=== PATIENT | female | born 1960 | race Caucasian/White ===

== ENCOUNTER → 2017-07-15 08:42 | Outpatient (CLI) | payer OTHER, SELFPAY ==
--- NOTE | 2017-07-15 08:53 | RAD_ITS ---
STUDY: X-RAY - PELVIS AND LEFT HIP REASON FOR EXAM: Female, 57 years old. Chronic left hip pain. TECHNIQUE: Radiological exam, hip, unilateral, with pelvis when performed; 2 or 3 views. COMPARISON: None. FINDINGS: There is a non-specific bowel gas pattern. There are multiple calcified phleboliths. There are healed changes of prior bilateral posterior L4-5 fusion with metal hardware. There is narrowing with cortical sclerosis and osteophyte formation of the bilateral sacroiliac joints, consistent with degenerative osteoarthritic changes. Small cortical enthesophytes noted from the lateral iliac wings. Normal visualized sacrum. Normal bilateral superior and inferior pubic rami. There are degenerative changes of the pubic symphysis with articular narrowing and sclerosis. Normal bilateral ischial tuberosities. Normal visualized femoral head. Normal acetabulum. Normal hip joint. There is no demonstrated osseous destructive lesion or fracture. RAD/Hip 2-3 Views with Pelvis IMPRESSION: 1. Normal x-ray examination of the left hip. 2. 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 3. Healed prior bilateral posterior L4-5 fusion with metal hardware. Electronically Signed: Berny Moore MD at 9:25 EDT , Service support ,
== END ==
LOC: HPRAD 08:50
PROVIDERS: Family Provider Family Medicine; PCP Family Medicine; Visit Provider Nurse Practitioner Family
DX: M25.552 Pain in left hip (principal)
CPT/HCPCS: 73502

== ENCOUNTER 2021-01-09 09:48 | Day surgery (SDC) | payer OTHER, SELFPAY ==
--- NOTE | 2020-12-30 16:00 | HP.PCM_ITS ---
History and Physical Date of Admission: 01/09/21 Chief Complaint: Pain in lower back,right buttock,right leg History of Present Illness: This is a 69 Y/O male who was seen and evaluated at our office today as a new consult. Pt was referred to this office by Dr Cheek. Pt's chief complaint is low back pain with pain radiating into his right hip and down his right leg into the front of his right calf. Pt states he will at times get cramping in his foot depending upon the exercise. Pt states he has had this pain for years, States years ago he was running in a field and his foot went into hole and his back pain has been ever since. Pt states the pain can be sharp at times but he knows it is there. States when he walks he feels it with every step. States stretches and exercises help. Pt has had PT with relief and continues the exercises and pt has had a MRI. Pt feels the therapy helps his pain. Pt is here for an injection to see if that would help. Pt has had an injection in the past with relief. Pain: lower back,right buttock,right leg Quality: constant,varies in intensity Region: Pain in the lower back into the right buttock and has pain down the right leg. 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 Review of Systems: ear noises,frequent urination,sexual difficulty,lower back injury, dripping after urination,prostate problems. Patient denies any recent fever, chills, headache, change in weight without trying, vision or hearing problems. No cp, sob, potts, pnd, orthopnea, or peripheral edema.They note no lumps or swollen glands, no new rashes, changing moles, or change in bowel or bladder function.Mood has been frustrated. Past Medical History: h/o coronary artery disease h/o hypertension h/o thrombosis h/o Arthritis h/o glaucoma h/o peripheral vascular disease s/p left rotator cuff repair 2014 s/p heart stent 2017 s/p left leg vein stripping Family History: ======== Structured Family History ======== Father: Heart disease Mother: Stroke, Hypertension Social History: [Tobacco: Former smoker (0 pk yrs / 0 yrs quit) Start Date: 12/06/2020 End Date: 12/06/2020 Pipe Smoker: No Cigar Smoker: No Chewing Tobacco User: No Electronic Cigarette User: No] Living situation: Occupation: Retired Tobacco: Former (quit 1974) Cigar-rarely EtOH: Occasional Rec. drugs: Denies Allergies: Tetracycline Medications: 1) alfuzosin 10 mg oral tablet, extended release, Take 1 tablet by mouth once daily 2) clopidogrel 75 mg oral tablet, Take 1 tablet by mouth once daily 3) ezetimibe 10 mg oral tablet, Take 1 tablet by mouth once daily 4) Glucosamine Chond Complex/MSM Oral Tablet CAPLET, Take 1 tablet by mouth once daily 5) lisinopril 20 mg oral tablet, Take 1 tablet by mouth once daily 6) meclizine 25 mg oral tablet, Take 1 tablet by mouth once daily 7) meloxicam 7.5 mg oral tablet, Take 1 tablet by mouth 2 times a Day 8) nitroglycerin 0.4 mg sublingual tablet, as directed prn 9) pantoprazole 40 mg oral delayed release tablet, Take 1 tablet by mouth once daily 10) Saw Randolph oral capsule, Take 1 tablet by mouth once daily 11) sildenafil 100 mg oral tablet, Take 1 tablet by mouth prn 12) verapamil 120 mg oral tablet, Take 1 tablet by mouth once daily 13) Vitamin B Complex oral capsule, Take 1 tablet by mouth once daily 14) Vitamin B12 1000 mcg oral tablet, Take 1 tablet by mouth once daily 15) Vitamin D3 2000 intl units (50 mcg) oral capsule, Take 1 tablet by mouth once daily 16) Xarelto 10 mg oral tablet, Take 1 tablet by mouth once daily Physical Examination: Wt: 185.2 lb Ht/Ln: 70 in BMI: 26.6 BP: 139/77 Pulse: 86 RR: 16 Temp: 97.1F Pain: 7 Well nourished and well developed in no acute distress. Alert and oriented to person, place and time. Affect is normal and appropriate. Mucosa pink and moist. Respirations even and unlabored. Neck is supple without significant lymphadenopathy or thyromegaly. Abdomen soft & non-tender. No HSM or masses appreciated. Extremities show no cyanosis, clubbing, or edema. Musculoskeletal exam: pt is ambulating to and from the examination room with an antalgic gait without any assistance of any devices, pt was able to ambulate on his heels and tip toes without difficulty, ROM of the lumbar spine is limited to 40 degrees flexion and 25 degrees extension, lateral rotation with pain. On inspection of the lower back there is no surgical scar. Alignment of the spine appears normal. On superficial and deep palpation there is tenderness at the right paraspinal muscle without muscle spasms, there is no step off on the spinous process. There is tenderness and positive facet loading on the right, negative SI joint tenderness , SLR test is positive at 40 degrees on the right and positive 40 degrees on the left, YESICA test is negative on the right and positive on the left, motor function is 5/5 on the right lowe extremity muscles and 5/5 on the left lower extremity muscles, sensory exam intact to light touch on the right and the left, reflexes are symmetrical bilateral and 2+ on the right knee jerk and Achilles and 2+ on the left knee jerk and Achilles, pulses and capillary refill are intact. 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 OARRS was reviewed today. UDS was performed today and will be reviewed on the next encounter to monitor pt medications compliance. SOAPP score is 4 MRI of the lumbar spine was reviewed with the pt today and they appear to understand. There are no signs of diversion or addiction with the pt, there is also no signs of abuse or misuse, continues to do well with their medications without any side effects, we will continue monitoring the pt closely. Pt has tried multiple modalities with no success, we will schedule the pt for a therapeutic/diagnostic right lumbar transforaminal epidural steroid injection L4-S1 under fluoroscopy We have discussed the risks, benefits as well as alternatives of the procedure and the patient appears to understand and would like to proceed with the above plan. Reviewed with the pt today our opioid agreement and they appear to understand. PEG was reviewed today. Life style modifications were also discussed today and the pt appears to understand. Risks and benefits of the above meds were discussed with the pt and they appear to understand. The common side effects of the medications were discussed and all of their questions and concerns were answered and they appear to understand Discussed natural and expected course of this diagnosis and need to alert me if symptoms do not follow expected course, or if any worse. Pt is to continue with his PT and HEP. The above plan was discussed today with the pt in detail and they appear to understand and agrees to continue with the plan.
[2021-01-09 10:27] VITALS: BP 128/70; PULSE 58; RESP 16; TEMP 36.1; O2SAT 100; BMI 27.1
[2021-01-09] MEDS: Lactated Ringers 1,000 ML 100 ML IV (10:31)
--- NOTE | 2021-01-09 11:20 | RAD_ITS ---
STUDY: X-RAY - LUMBAR SPINE REASON FOR EXAM: Female, 60 years old. LUMBAR SYMPATHETIC PLEXUS NERVE BLOCK, RIGHT TECHNIQUE: 1 view(s) of the lumbar spine were obtained. COMPARISON: None FINDINGS: Fluoroscopic services provided for right sympathetic plexus nerve block. RAD/Spine 1 View Any Level IMPRESSION: Fluoroscopic services provided for right sympathetic plexus nerve block. Electronically Signed: Paul Escalante MD at 14:52 EDT , Service support ,
--- NOTE | 2021-01-09 11:31 | OP.PCM_ITS ---
Report of Operation Date of Procedure: 01/09/21 Description of Surgical Findings:: POSTOPERATIVE DIAGNOSIS: PREOPERATIVE DIAGNOSES: 1. Complex regional pain syndrome of the right lower extremity. 2. Reflex sympathetic dystrophy on the right lower extremity. POSTOPERATIVE DIAGNOSES: 1. Complex regional pain syndrome of the right lower extremity. 2. Reflex sympathetic dystrophy on the right lower extremity. PROCEDURE PERFORMED: Right-sided lumbar sympathetic plexus steroid injection under fluoroscopy guidance. ANESTHESIA: MAC. BLOOD LOSS: Minimal. COMPLICATIONS: None. DESCRIPTION OF PROCEDURE: History and physical of today was reviewed. Risks and benefits of the procedure were explained. The patient understood and agreed to proceed. Informed consent was obtained. IV inserted per routine protocol. The patient was taken to the operating room and placed in the prone position with a pillow positioned beneath the abdomen. The right side of his lower back was prepped and draped in a sterile fashion using iodine x3. Under fluoroscopy guidance on AP view, the L2-3 intervertebral level was visualized. The skin and subcutaneous tissue was anesthetized with approximately 5 mL of 1% lidocaine of approximately 6 cm lateral to the midline to the right side. Under direct visualization with fluoroscopy, at approximately 45-degree angle, using a 22- gauge 5-inch spinal needle, the needle was advanced via the skin. The tip of the needle was maneuvered and directed towards the transverse process of the L3 level superior to the transverse process. The tip of the needle was then maneuvered under direct visualization on fluoroscopy at approximately 45-degree angle and directed further outward and superior to the L3 transverse process. The needle was then further advanced under direct visualization with fluoroscopy on a lateral view to approximately 2-3 mm anterior to the body of L3. Once the tip of the needle was at the vicinity of the sympathetic plexus, after negative aspiration for blood or CSF, a total of 2 mL of contrast was injected to confirm correct placement of the needle as well as cephalocaudal spread from L2 to approximately L4 level to the right paramedian of the vertebral body. After repeated confirmation on AP as well as lateral view and repeated negative aspiration, a total of 10 mL of preservative-free 0.25% Marcaine with a trace of Depo-Medrol was injected easily. The needle was then removed intact. The patient experienced no sign or symptoms of intrathecal or intravascular injection. The patient experienced no paresthesia. The procedure was completed without any apparent difficulty or any complications. The patient appeared to tolerate it well. Assessment and plan: This is a 60-year-old female with complex regional pain syndrome of the right lower extremity reflex sympathetic dystrophy of the right lower extremity status post right-sided lumbar sympathetic plexus steroid injection under fluoroscopic guidance,, the patient will continue her current medications, patient will follow approximately 2 weeks for reevaluation.
[2021-01-09] MEDS: MethylPREDNISolone Acetate 80 MG/ML Vial (11:50)
[2021-01-09] MEDS: Bupivacaine 0.25% 30 ML Vial (11:51)
[2021-01-09] MEDS: Lidocaine 1% (5 ml sdv) 5 ML Vial (11:51)
[2021-01-09 12:00] VITALS: BP 103/66; BP 128/70; PULSE 64; RESP 18; TEMP 36.6; O2SAT 100
[2021-01-09 12:05] VITALS: BP 111/66; BP 128/70; PULSE 60; RESP 18; O2SAT 97
[2021-01-09 12:10] VITALS: BP 116/66; BP 128/70; PULSE 54; RESP 18; O2SAT 100
[2021-01-09 12:13] VITALS: BP 121/67; BP 128/70; PULSE 54; RESP 14; TEMP 36.3; O2SAT 100
[2021-01-09 12:30] VITALS: BP 128/70
== END 2021-01-09 12:36 | disposition home or self-care (01) ==
LOC: SDC 09:52 → AC 09:54
PROVIDERS: PCP Family Medicine; Referring Provider Anesthesiology Pain Medicine; Visit Provider Anesthesiology Pain Medicine
PROC: 3E0T3BZ Introduction of Anesthetic Agent into Peripheral Nerves and Plexi, Percutaneous Approach (ICD-10-PCS; CPT 64520; principal; 2021-01-09 11:15)
DX: G90.521 Complex regional pain syndrome I of right lower limb (principal); M51.17 Intervertebral disc disorders with radiculopathy, lumbosacral region; M47.27 Other spondylosis with radiculopathy, lumbosacral region; M48.07 Spinal stenosis, lumbosacral region; I25.10 Atherosclerotic heart disease of native coronary artery without angina pectoris; I10 Essential (primary) hypertension; M19.90 Unspecified osteoarthritis, unspecified site; I73.9 Peripheral vascular disease, unspecified; Z87.891 Personal history of nicotine dependence; Z79.1 Long term (current) use of non-steroidal anti-inflammatories (NSAID); Z79.02 Long term (current) use of antithrombotics/antiplatelets; Z79.899 Other long term (current) drug therapy
CPT/HCPCS: 01992; 64520; 64483; 72020; J7120

== ENCOUNTER 2021-12-25 06:43 | Day surgery (SDC) | payer OTHER, SELFPAY ==
[2021-12-25] VITALS (7 sets, daily range): BP systolic 109–140; BP diastolic 67–70; PULSE 64–78; RESP 16–18; TEMP 36.2–36.6; O2SAT 97–100; BMI 26.9
--- NOTE | 2021-12-25 07:00 | RAD_ITS ---
PROCEDURE: Right sympathetic nerve block. DATE OF EXAMINATION: 12/25/2021 INDICATION: Female, 61 years old. Back pain. FLUOROSCOPY TIME (if supplied): (13 seconds) minutes/seconds. 6 images were submitted. RAD/Spine 1 View Any Level IMPRESSION: Fluoroscopic services provided for right sympathetic nerve block. Electronically Signed: Paul Escalante MD at 9:31 EDT ,
[2021-12-25] MEDS: Lactated Ringers 1,000 ML 15 ML IV (07:15)
[2021-12-25] MEDS: Lidocaine 1% (5 ml sdv) 5 ML Vial (08:21)
[2021-12-25] MEDS: MethylPREDNISolone Acetate 80 MG/ML Vial (08:23)
[2021-12-25] MEDS: Bupivacaine 0.25% 30 ML Vial OPERA.SITE (08:23)
--- NOTE | 2021-12-25 10:16 | OP.PCM_ITS ---
Report of Operation Date of Procedure: 12/25/21 Description of Surgical Findings:: PREOPERATIVE DIAGNOSES: 1. Complex regional pain syndrome of the right lower extremity. 2. Reflex sympathetic dystrophy on the right lower extremity. POSTOPERATIVE DIAGNOSES: 1. Complex regional pain syndrome of the right lower extremity. 2. Reflex sympathetic dystrophy on the right lower extremity. PROCEDURE PERFORMED: Right-sided lumbar sympathetic plexus steroid injection under fluoroscopy guidance. ANESTHESIA: MAC. BLOOD LOSS: Minimal. COMPLICATIONS: None. DESCRIPTION OF PROCEDURE: History and physical of today was reviewed. Risks and benefits of the procedure were explained. The patient understood and agreed to proceed. Informed consent was obtained. IV inserted per routine protocol. The patient was taken to the operating room and placed in the prone position with a pillow positioned beneath the abdomen. The right side of his lower back was prepped and draped in a sterile fashion using iodine x3. Under fluoroscopy guidance on AP view, the L2-3 intervertebral level was visualized. The skin and subcutaneous tissue was anesthetized with approximately 5 mL of 1% lidocaine of approximately 6 cm ___ lateral to the midline to the right side. Under direct visualization with fluoroscopy, at approximately 45-degree angle, using a 22- gauge 5-inch spinal needle, the needle was advanced via the skin. The tip of the needle was maneuvered and directed towards the transverse process of the L3 level superior to the transverse process. The tip of the needle was then maneuvered under direct visualization on fluoroscopy at approximately 45-degree angle and directed further outward and superior to the L3 transverse process. The needle was then further advanced under direct visualization with fluoroscopy on a lateral view to approximately 2-3 mm anterior to the body of L3. Once the tip of the needle was at the vicinity of the sympathetic plexus, after negative aspiration for blood or CSF, a total of 2 mL of contrast was injected to confirm correct placement of the needle as well as cephalocaudal spread from L2 to approximately L4 level to the right paramedian of the vertebral body. After repeated confirmation on AP as well as lateral view and repeated negative aspiration, a total of 10 mL of preservative-free 0.25% Marcaine with a trace of Depo-Medrol was injected easily. The needle was then removed intact. The patient experienced no sign or symptoms of intrathecal or intravascular injection. The patient experienced no paresthesia. The procedure was completed without any apparent difficulty or any complications. The patient appeared to tolerate it well. Assessment and plan: This is a 62-year-old female with complex regional pain syndrome of the right l ower extremity reflex sympathetic dystrophy of the right lower extremity status post right-sided lumbar sympathetic plexus steroid injection under fluoroscopic guidance, patient will continue her current medications, patient will follow approximately 2 weeks for reevaluation.
== END 2021-12-25 09:18 | disposition home or self-care (01) ==
LOC: SDC 06:46 → AC 06:48
PROVIDERS: Referring Provider Anesthesiology Pain Medicine; Visit Provider Anesthesiology Pain Medicine
PROC: 3E0S3BZ Introduction of Anesthetic Agent into Epidural Space, Percutaneous Approach (ICD-10-PCS; CPT 62322; principal; 2021-12-25 07:55)
DX: G90.521 Complex regional pain syndrome I of right lower limb (principal); J44.9 Chronic obstructive pulmonary disease, unspecified; Z87.891 Personal history of nicotine dependence; Z79.899 Other long term (current) drug therapy; Z79.51 Long term (current) use of inhaled steroids; M70.62 Trochanteric bursitis, left hip; M79.2 Neuralgia and neuritis, unspecified; Z79.891 Long term (current) use of opiate analgesic; M47.812 Spondylosis without myelopathy or radiculopathy, cervical region; M96.1 Postlaminectomy syndrome, not elsewhere classified; M48.9 Spondylopathy, unspecified; K21.9 Gastro-esophageal reflux disease without esophagitis
CPT/HCPCS: 64520; 01992; 64483; 72020; J7120

== ENCOUNTER 2023-01-14 08:24 | Day surgery (SDC) | payer OTHER, SELFPAY ==
[2023-01-14] MEDS: Lactated Ringers 1,000 ML 15 ML IV (08:50)
[2023-01-14 08:51] VITALS: BP 142/69; PULSE 60; RESP 16; TEMP 36.1; O2SAT 100; BMI 26.8
--- NOTE | 2023-01-14 09:08 | RAD_ITS ---
STUDY: LUMBAR SYMPATHETIC NERVE STEROID BLOCK ON THE RIGHT. REASON FOR EXAM: Female, 62 years old. LUMBAR SYMPATHETIC NERVE STEROID BLOCK, RIGHT, 7 seconds fluoro, 1.85 mg, 4 spots FLUOROSCOPY TIME (if supplied): ( 7 seconds ) minutes/seconds. 1.85 mGy TECHNIQUE: Fluoroscopic services provided for right lumbar sympathetic nerve steroid block. COMPARISON: None. RAD/Spine 1 View Any Level IMPRESSION: Fluoroscopic services provided for right lumbar sympathetic nerve steroid block. Electronically Signed: Paul Escalante MD at 10:06 EST ,
[2023-01-14] MEDS: Lidocaine 1% (5 ml sdv) 5 ML Vial (09:15)
[2023-01-14] MEDS: MethylPREDNISolone Acetate 80 MG/ML Vial (09:15)
[2023-01-14 09:24] VITALS: BP 113/68; BP 142/69; PULSE 56; RESP 16; TEMP 36.4; O2SAT 98
--- NOTE | 2023-01-14 09:25 | OP.PCM_ITS ---
Report of Operation Date of Procedure: 01/14/23 Description of Surgical Findings:: PREOPERATIVE DIAGNOSES: 1. Complex regional pain syndrome of the right lower extremity. 2. Reflex sympathetic dystrophy on the right lower extremity. POSTOPERATIVE DIAGNOSES: 1. Complex regional pain syndrome of the right lower extremity. 2. Reflex sympathetic dystrophy on the right lower extremity. PROCEDURE PERFORMED: Right-sided lumbar sympathetic plexus steroid injection under fluoroscopy guidance. ANESTHESIA: MAC. BLOOD LOSS: Minimal. COMPLICATIONS: None. DESCRIPTION OF PROCEDURE: History and physical of today was reviewed. Risks and benefits of the procedure were explained. The patient understood and agreed to proceed. Informed consent was obtained. IV inserted per routine protocol. The patient was taken to the operating room and placed in the prone position with a pillow positioned beneath the abdomen. The right side of his lower back was prepped and draped in a sterile fashion using iodine x3. Under fluoroscopy guidance on AP view, the L2-3 intervertebral level was visualized. The skin and subcutaneous tissue was anesthetized with approximately 5 mL of 1% lidocaine of approximately 6 cm lateral to the midline to the right side. Under direct visualization with fluoroscopy, at approximately 45-degree angle, using a 22- gauge 5-inch spinal needle, the needle was advanced via the skin. The tip of the needle was maneuvered and directed towards the transverse process of the L3 level superior to the transverse process. The tip of the needle was then maneuvered under direct visualization on fluoroscopy at approximately 45-degree angle and directed further outward and superior to the L3 transverse process. The needle was then further advanced under direct visualization with fluoroscopy on a lateral view to approximately 2-3 mm anterior to the body of L3. Once the tip of the needle was at the vicinity of the sympathetic plexus, after negative aspiration for blood or CSF, a total of 2 mL of contrast was injected to confirm correct placement of the needle as well as cephalocaudal spread from L2 to approximately L4 level to the right paramedian of the vertebral body. After repeated confirmation on AP as well as lateral view and repeated negative aspiration, a total of 10 mL of preservative-free 0.25% Marcaine with a trace of Depo-Medrol was injected easily. The needle was then removed intact. The patient experienced no sign or symptoms of intrathecal or intravascular injection. The patient experienced no paresthesia. The procedure was completed without any apparent difficulty or any complications. The patient appeared to tolerate it well. Assessment and plan: This is a 62-year-old female with complex regional pain syndrome of the right lower extremity reflex sympathetic dystrophy of the right lower extremity status post right-sided lumbar sympathetic plexus steroid injection under fluoroscopic guidance, patient will continue her current medications, patient will follow in approximately 2 weeks for reevaluation.
[2023-01-14 09:30] VITALS: BP 114/64; BP 142/69; PULSE 54; RESP 16; O2SAT 99
[2023-01-14 09:35] VITALS: BP 121/63; BP 142/69; PULSE 54; RESP 16; O2SAT 100
[2023-01-14 09:40] VITALS: BP 125/63; BP 142/69; PULSE 62; RESP 16; TEMP 36.4; O2SAT 98
[2023-01-14 10:00] VITALS: BP 142/69
== END 2023-01-14 10:10 | disposition home or self-care (01) ==
LOC: SDC 08:29 → AC 08:29
PROVIDERS: Referring Provider Anesthesiology Pain Medicine; Visit Provider Anesthesiology Pain Medicine
PROC: 3E0T3BZ Introduction of Anesthetic Agent into Peripheral Nerves and Plexi, Percutaneous Approach (ICD-10-PCS; CPT 64520; principal; 2023-01-14 09:35)
DX: G90.521 Complex regional pain syndrome I of right lower limb (principal); M79.604 Pain in right leg; J45.909 Unspecified asthma, uncomplicated; K21.9 Gastro-esophageal reflux disease without esophagitis
CPT/HCPCS: 64520; 64483; 72020; J7120

== ENCOUNTER 2024-01-27 08:19 | Day surgery (SDC) | payer OTHER, SELFPAY ==
[2024-01-27] VITALS (8 sets, daily range): BP systolic 100–123; BP diastolic 51–60; PULSE 53–59; RESP 16–18; TEMP 36.4–36.8; O2SAT 98–100; BMI 23.3
--- NOTE | 2024-01-27 08:30 | RAD_ITS ---
PROCEDURE: Right sympathetic plexus injection. DATE OF EXAMINATION: January 27, 2024. INDICATION: Female, 64 years old. Chronic back pain. FLUOROSCOPY TIME (if supplied): (10 seconds) minutes/seconds. 2.73 mGy. 2 images were submitted. RAD/Lumbar Spine 2 or 3 Views IMPRESSION: Intraoperative imaging provided for right sympathetic plexus injection. Electronically Signed: Paul Escalante MD at 12:54 EST ,
--- NOTE | 2024-01-27 08:40 | PRE.ANES_ITS ---
ASA Classification* ASA Classification ASA Classification: 2 Assessment & Plan Anesthesia* Anesthesia Assessment Anesthesia Assessment: Discussed sedation and/or anesthesia options, risks, benefits, and alternatives with patient/parents/legal guardian/POA. Questions invited. The patient/parents/legal guardian/POA seems to understand and agrees to proceed with anesthesia plan. Reviewed the physical assessment, medical history, allergy history and patient home medications list prior to surgery/procedure/anesthetic and documented any changes. Performed airway and anesthesia risk assessments. 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 When Was Last Pacemaker Check QUESTION #4 FULL TEXT: You/Your Family Experience fever (hyperthermia) with Anesthesia Last Oral Intake Last Oral intake: Last Oral Intake NPO since 23:00 01/27/24 08:33 Meds taken in AM with sips of Yes 01/27/24 08:33 water? 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 Yes 01/22/24 10:30 HX of Motion Sickness Yes 01/22/24 10:30 HX of N/V After Surgery No 01/22/24 10:30 Non-Smoker Yes 01/22/24 10:30 Duration of Surgery greater No 01/22/24 10:30 than 60 minutes Number of Risk Factors 3 01/22/24 10:30 PONV Score Moderate Risk 01/22/24 10:30 Height & Weight Height & Weight: Anesthesia: Height & Weight Height 5 ft 1 in 01/27/24 08:33 Weight: 56 kg 01/27/24 08:33 Body Mass Index (BMI) 23.3 01/27/24 08:33 Respiratory Assessment Respiratory Assessment - [employer] police sergeant: Respiratory Tract Infection Hx - [employer] i police sergeant Hx Respiratory Tract Infection No 01/22/24 10:30 STOP Sleep Apnea STOP Sleep Apnea - [employer] police sergeant: STOP Sleep Apnea - [employer] police sergeant Hx Hypertension No 01/22/24 10:30 Hx Sleep Apnea Yes 01/22/24 10:30 CPAP Yes 01/22/24 10:30 BIPAP No 01/22/24 10:30 Do you snore loudly (louder than talking or can be heard Do you often feel tired/ fatigued/ sleepy during daytime? Has anyone observed you stop breathing during sleep? STOP Results Positive 01/22/24 10:30 QUESTION #5 FULL TEXT : Do you snore loudly (louder than talking or can be heard through closed doors)? 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 Specify any problems Hx of Preganancy in last 3 No 01/22/24 10:30 Months Nurse Filling Out Transfusion DSCHRIBER 01/22/24 10:30 & Questions: Date: 01/22/24 01/22/24 10:30 Time: 10:31 01/22/24 10:30 Patient unable to answer at this time (ie. confused, unrespo /Reproduction History /Reproductive History - [employer] police [employer]: /Reproductive Hx- [employer] police [employer] Hx Now No 01/22/24 10:30 Gestational Age (in weeks): EDC: Hx Hx Para Hx Section SAB No 01/22/24 10:30 [facility] Medical History Post-menopausal Easy bruising Shortness of breath on exertion Pain Loss of hearing Wears glasses Wears dentures Anxiety Arthritis Low iron Restless legs Back pain Migraine headache Gastric reflux Former smoker CPAP (continuous positive airway pressure) dependence Asthma Leg cramps History of cardiac murmur as a child History of stress test Home Medications ?Medication ?Instructions ?Recorded ?Last Taken ?Type albuterol sulfate 90 mcg/actuation 1 inh inhalation Q6H PRN SOB 01/03/21 Unknown History breath activated powder inhaler budesonide-formoterol HFA 80 2 puff inhalation BID 01/03/21 Unknown History mcg-4.5 mcg/actuation aerosol inhaler (Symbicort) cyanocobalamin (vitamin B-12) 25 50 mcg PO DAILY 01/03/21 Unknown History mcg tablet gabapentin 800 mg tablet 800 mg PO 4X/DAY 01/03/21 01/27/24 History pantoprazole 40 mg tablet,delayed 40 mg PO DAILY 01/03/21 01/27/24 History release trazodone 50 mg tablet 50 mg PO QHS 01/03/21 Unknown History Allergy/AdvReac Type Severity Reaction Status Date / Time codeine Allergy Rash Verified 01/27/24 08:32 Surgical History Hx laparoscopic cholecystectomy History of fusion of lumbar spine Hx of fusion of cervical spine Hx of thumb surgery History of partial hysterectomy Hx of tonsillectomy Social History Smoking Status: Former smoker Review of Systems (Anesthesia) ROS Narrative System reviewed and no additional complaints, except as documented.
[2024-01-27] MEDS: MethylPREDNISolone Acetate 80 MG/ML Vial (09:26)
[2024-01-27] MEDS: Bupivacaine 0.25% 30 ML Vial (09:26)
[2024-01-27] MEDS: Lidocaine 1% (5 ml sdv) 5 ML Vial (09:26)
--- NOTE | 2024-01-27 09:34 | OP.PCM_ITS ---
Operative Report (Standard) Operative Information Surgery/Procedure Performed: Right-sided lumbar sympathetic plexus steroid i njection under fluoroscopy guidance. Surgeon: Boston Sharma Date of Procedure: 01/27/24 Procedure Start Time: :34 Procedure Stop Time: 09:35 Pre-Operative Diagnosis: 1.Complex regional pain syndrome of the right lower extremity. 2.Reflex sympathetic dystrophy on the right lower extremity. Post-Operative Diagnosis: 1.Complex regional pain syndrome of the right lower extremity. 2.Reflex sympathetic dystrophy on the right lower extremity. Select all DRAINS/GRAFTS/IMPLANTS that apply: None Type of Anesthesia: Local MAC and MAC Estimated Blood Loss: <1 cc Specimen collected: No Description of surgery: PREOPERATIVE DIAGNOSES: 1.Complex regional pain syndrome of the right lower extremity. 2.Reflex sympathetic dystrophy on the right lower extremity. POSTOPERATIVE DIAGNOSES: 1.Complex regional pain syndrome of the right lower extremity. 2.Reflex sympathetic dystrophy on the right lower extremity. PROCEDURE PERFORMED: Right-sided lumbar sympathetic plexus steroid injection under fluoroscopy guidance. ANESTHESIA: MAC. BLOOD LOSS: Minimal. COMPLICATIONS: None. DESCRIPTION OF PROCEDURE: History and physical of today was reviewed. Risks and benefits of the procedure were explained. The patient understood and agreed to proceed. Informed consent was obtained. IV inserted per routine protocol. The patient was taken to the operating room and placed in the prone position with a pillow positioned beneath the abdomen. The right side of his lower back was prepped and draped in a sterile fashion using iodine x3. Under fluoroscopy guidance on AP view, the L2-3 intervertebral level was visualized. The skin and subcutaneous tissue was anesthetized with approximately 5 mL of 1% lidocaine of approximately 6 cm lateral to the midline to the right side. Under direct visualization with fluoroscopy, at approximately 45-degree angle, using a 22- gauge 5-inch spinal needle, the needle was advanced via the skin. The tip of the needle was maneuvered and directed towards the transverse process of the L3 level superior to the transverse process. The tip of the needle was then maneuvered under direct visualization on fluoroscopy at approximately 45-degree angle and directed further outward and superior to the L3 transverse process. The needle was then further advanced under direct visualization with fluoroscopy on a lateral view to approximately 2-3 mm anterior to the body of L3. Once the tip of the needle was at the vicinity of the sympathetic plexus, after negative aspiration for blood or CSF, a total of 2 mL of contrast was injected to confirm correct placement of the needle as well as cephalocaudal spread from L2 to approximately L4 level to the right paramedian of the vertebral body. After repeated confirmation on AP as well as lateral view and repeated negative aspiration, a total of 10 mL of preservative-free 0.25% Marcaine with a trace of Depo-Medrol was injected easily. The needle was then removed intact. The patient experienced no sign or symptoms of intrathecal or intravascular injection. The patient experienced no paresthesia. The procedure was completed without any apparent difficulty or any complications. The patient appeared to tolerate it well. Assessment and plan: This is a 62-year-old female with complex regional pain syndrome of the right lower extremity reflex sympathetic dystrophy of the right lower extremity status post right-sided lumbar sympathetic plexus steroid injection under fluoroscopic guidance, patient will continue her current medications, patient will follow in approximately 2 weeks for reevaluation. 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
--- NOTE | 2024-01-27 09:34 | PCM.POST.ANE ---
Anesthesia: Postop Eval I Current Vital Signs Temperature: 97.6 F Pulse Rate: 55 Blood Pressure: 103/53 Respiratory Rate: 18 Pulse Ox: 100 Assessment Airway patent: Yes Spontaneous unlabored respirations: Yes nausea: No Vomiting: No Anesthesia Complication: No Fluid Hydration Crystalloid volume administer (ml): 0 Total IV fluid infused: 0 Progress Note Anesthesia document: Postop Eval 1 completed: Yes
--- NOTE | 2024-01-27 10:11 | POSTOPAN2_ITS ---
Anesthesia Postop Eval I Sum Postop Eval Completion status Anesthesia document: Postop Eval 1 completed: Yes Anesthesia Postop Eval I Summary Anesthesia Postop Eval I Summary: Anesthesia Postop Eval I: Assessment Summary Airway patent Yes 01/27/24 09:34 [email or web address] [email or web address] Spontaneous unlabored Yes 01/27/24 09:34 PSYCHOLOGY TECHNICIAN.CSIR respirations Mental status nausea No 01/27/24 09:34 PSYCHOLOGY TECHNICIAN.CSIR Vomiting No 01/27/24 09:34 PSYCHOLOGY TECHNICIAN.CSIR Anesthesia Postop Eval I: Fluid Summary Crystalloid volume administer 0 01/27/24 09:34 PSYCHOLOGY TECHNICIAN.CSIR (ml) Colloids volume administered ( ml) Blood Product volume administered (ml) Total IV fluid infused 0 01/27/24 09:34 PSYCHOLOGY TECHNICIAN.CSIR Anesthesia Postop Eval I: Summary Notes Anesthesia Complication No 01/27/24 09:34 PSYCHOLOGY TECHNICIAN.CSIR Anesthesia Complication Comment: Post-operative progress note Anesthesia: Postop Eval II Evaluation Mental status: Awake Pain Level: 2 nausea: No Vomiting: No
--- NOTE | 2024-01-27 10:11 | PCM.POSTANE2 ---
Anesthesia Postop Eval I Sum Postop Eval Completion status Anesthesia document: Postop Eval 1 completed: Yes Anesthesia Postop Eval I Summary Anesthesia Postop Eval I Summary: Anesthesia Postop Eval I: Assessment Summary Airway patent Yes 01/27/24 09:34 WOOD SCRAP [email or web address] Spontaneous unlabored Yes 01/27/24 09:34 WOOD SCRAP HANDLER.CSIR respirations Mental status nausea No 01/27/24 09:34 WOOD SCRAP HANDLER.CSIR Vomiting No 01/27/24 09:34 WOOD SCRAP HANDLER.CSIR Anesthesia Postop Eval I: Fluid Summary Crystalloid volume administer 0 01/27/24 09:34 WOOD SCRAP HANDLER.CSIR (ml) Colloids volume administered ( ml) Blood Product volume administered (ml) Total IV fluid infused 0 01/27/24 09:34 WOOD SCRAP HANDLER.CSIR Anesthesia Postop Eval I: Summary Notes Anesthesia Complication No 01/27/24 09:34 WOOD SCRAP HANDLER.CSIR Anesthesia Complication Comment: Post-operative progress note Anesthesia: Postop Eval II Evaluation Mental status: Awake Pain Level: 2 nausea: No Vomiting: No
== END 2024-01-27 10:11 | disposition home or self-care (01) ==
LOC: SDC 08:20 → AC 08:23
PROVIDERS: Referring Provider Anesthesiology Pain Medicine; Visit Provider Anesthesiology Pain Medicine
PROC: 3E0T3BZ Introduction of Anesthetic Agent into Peripheral Nerves and Plexi, Percutaneous Approach (ICD-10-PCS; CPT 64520; principal; 2024-01-27 09:25)
DX: G90.521 Complex regional pain syndrome I of right lower limb (principal)
CPT/HCPCS: 64520; 01992; 64483; 72100; A4216; J2405